=== PATIENT | male | born 1970 | race Caucasian/White ===

== ENCOUNTER → 2022-03-14 09:35 | Outpatient (CLI) | payer OTHER, SELFPAY ==
--- NOTE | ~2022-03-14 | US_ITS ---
US abdomen complete DATE: 03/14/2022 10:02 INDICATION: Elevated liver enzymes TECHNIQUE: Real-time imaging of abdomen, Doppler analysis COMPARISON: 07/08/2006 Limited abdominal ultrasound examination FINDINGS: Hepatic steatosis. No hepatic space-occupying mass lesion is detected. Normal hepatopedal p ortal venous flow direction. No gallstones or gallbladder wall thickening or pericholecystic fluid collection. Negative sonographi c Hill's sign. The common bile duct measures 5.2 mm, within normal range. The pancreas is unremarkable. No pancreatic duct dilatation. Normal splenic size. No renal mass lesion or hydronephrosis. Normal size of the spleen. Normal caliber of the abdominal aorta. The inferior vena cava is unremarkable. IMPRESSION: Negative Reviewed, dictated and finalized at [facility]. Reviewed, dictated and finalized at [facility]. IMPRESSION: Negative
== END ==
PROVIDERS: PCP Family Medicine; Visit Provider Family Medicine
DX: R74.8 Abnormal levels of other serum enzymes (principal)
CPT/HCPCS: 76700